=== PATIENT | male | born 1950 | race Caucasian/White ===

== ENCOUNTER 2025-05-23 17:13 | Emergency (ER) | payer MEDICARE, OTHER, SELFPAY ==
[2025-05-23 17:14] VITALS: BP 143/81
[2025-05-23 19:47] VITALS: BP 155/83
[2025-05-23 19:48] VITALS: BMI 26.0
--- NOTE | 2025-05-23 20:49 | ED.GENMED ---
History of Present Illness
General
Chief Complaint: Male Genito-Urinary Symptoms
Time Seen by Provider: 05/23/25 20:17
History of Present Illness
History of Present Illness:
75-year-old male with history of malignant melanoma presenting to the emergency department for right testicular pain. Patient reports symptoms have been ongoing for the past week. Denies any known injury or trauma. Feels that the symptoms started
after constipation, straining to have a bowel movement. Denies any fever. Does report that he saw some blood in his urine about a week ago, however has since had normal urine. No significant pain when sitting. Does report pain when he stands up.
Denies any significant abdominal pain. Denies additional acute medical complaints
Past History
Past History
ED Past Medical History: Hypercholesterolemia
Social History
Tobacco: Non-smoker
Alcohol: None
Drug: None
Phy Exam
Physical Exam
Physical Exam:
General: Well-appearing, no clinical signs of dehydration, nontoxic and in no acute distress
HEENT: protecting airway
Neck: appears supple
CV: Normal heart rate
Resp: No accessory muscle use, no increased work of breathing
Abd: No distention
Extremities: No deformities, no swelling
Neuro: alert, no focal neurologic deficit
: No significant swelling to the right testicle. No erythema. Focal area of firmness and tenderness on palpation, posteriorly and inferiorly
Rectal: deferred
Psych: Normal affect
Skin: Intact
Course
Orders/Labs/Results
Orders:
Orders
05/23/25 17:23
US Scrotum Urgent
Comment:
Reason For Exam: R testicular pain
05/23/25 20:47
Urinalysis Reflex To Culture Urgent
Vital Signs
Initial and Last Documented VS:
Initial Vital Signs
Temp Pulse Resp BP Pulse Ox
98.9 F 66 16 143/81 95
05/23/25 17:14 05/23/25 17:14 05/23/25 17:14 05/23/25 17:14 05/23/25 17:14
Last Documented Vital Signs
Temp Pulse Resp BP Pulse Ox
98.9 F 66 16 155/83 99
05/23/25 17:14 05/23/25 17:14 05/23/25 17:14 05/23/25 19:47 05/23/25 19:47
MDM/Problems Addressed
MDM/Problems Addressed:
75-year-old male with history of malignant melanoma, currently off therapy, presenting to the emergency department for 1 week of right testicular pain. Vital signs on arrival are normal.
On exam patient is resting comfortably, no acute distress or discomfort. Overall benign examination of the right testicle. No swelling or deformity. Lower suspicion for testicular torsion. No palpation of any fluctuance or concern for abscess.
No infectious symptoms with lower suspicion for orchitis or epididymitis. There is a firm area on palpation which could be consistent with a mass, known history of prior cancer. Ultrasound obtained prior to my assessment which does not show any
obvious infection or any sign of torsion. There is a 2.8 cm complex area without blood flow caudal to the right testicle, most likely to represent a hematoma. This is consistent with patient's exam, tenderness and firmness on palpation. Lower
suspicion for mass. However, recommending close interval follow-up with urology for repeat examination and repeat imaging to ensure interval improvement. Will send urine sample. Otherwise feel stable for discharge. Advised NSAIDs and scrotal
support. Return precautions discussed
*Pulse Oximetry
SaO2: 99
Oxygen Mode of Delivery: Room air
Patient hypoxic: no
*Critical Care Note
Total Time (30-74mins, 75-104mins- exclusive of procedures): Not Applicable
ED Attending Note
-
Portions of this chart may have been created with voice recognition software.� Occasional wrong word or��sound alike� substitutions may have occurred due to the inherent limitations of voice recognition software.
Discharge Plan
Departure
Prescriptions:
No Action
Zocor:
1 tab PO DAILY
Referrals:
Robbi Brennan, DO [Family Provider, Internal Medicine]
Interventions
Interventions:
*Risk Screen - Suicide Last Done: 05/23/25 19:36
*General Assessment Last Done: 05/23/25 19:36
*Neglect/Abuse Screening Last Done: 05/23/25 19:36
*ED- Fall Risk Assessment Last Done: 05/23/25 19:36
*ED COVID-19 Vaccine History Last Done: 05/23/25 19:36
*ED Influenza Vaccine History Last Done: 05/23/25 19:36
ED-Male Genitourinary Assessment Last Done: 05/23/25 19:48
Discharge Date and Time
Print Language: [id number]
[2025-05-23 21:07] LABS: Urine Character Slightly Cloudy (Clear)
[2025-05-23 21:15] LABS: Urine Squamous Cell 16-20 /LPF (Few); Urine White Cell 30-40 /HPF (0-5)
== END 2025-05-23 21:09 | disposition home or self-care (01) ==
LOC: EMR 17:13
PROVIDERS: EMERGENCY PHYSICIAN Student in an Organized Health Care Education/Training Program; FAMILY PHYSICIAN Family Medicine
DX: S30.22XA Contusion of scrotum and testes, initial encounter (principal); X58.XXXA Exposure to other specified factors, initial encounter; E78.00 Pure hypercholesterolemia, unspecified; Z85.820 Personal history of malignant melanoma of skin
CPT/HCPCS: 99284; 76870; 81003; 81015; 87077; 87086; 87186; 93976

== ENCOUNTER → 2025-06-11 15:14 | Outpatient (REF) | payer MEDICARE, OTHER, SELFPAY | LOC: HWRAD 15:14 | PROVIDERS: ATTENDING PHYSICIAN Nurse Practitioner Adult Health | DX: N50.1 Vascular disorders of male genital organs (principal) | CPT/HCPCS: 76870; 93976 ==